=== PATIENT | male | born 1935 | race Caucasian/White ===

== ENCOUNTER 2016-05-09 00:29 | Emergency (ER) | payer MEDICARE ==
[~2016-05-09] VITALS: Ht 170.2 cm; Wt 88.6 kg
[~2016-05-09 00:29] MED LIST: ALBU8.5H2 IH; ALEN70TA2 PO; BECL8.7A5 INH; BENA40TA2 PO; CHOL100043 PO; CYCL1DRO BOTH_EYES; DESO15CR25 TOP; DILT180C47 PO; FERR-83 PO; FLUO5DRO7 BOTH_EYES; FUR20 PO; LORA10CA PO; OMEP20CA11 PO; OXYC1TAB24 PO; POLY17PO6 PO; PRAV10TA2 PO; PRD5T PO
[2016-05-09 00:30] VITALS: BP 174/101; PULSE 82; RESP 19; O2SAT 93
[2016-05-09] MEDS ORDERED: Atropine 1 mg/10 mL (Code) Syringe ONE (00:30)
[2016-05-09] MEDS ORDERED: Succinylcholine Chloride 20 mg/mL 5 mL Inj ONE (00:30)
--- NOTE | 2016-05-09 00:35 | ED.REPORT ---
HPI-General Illness Date of Service May 09, 2016 ED Provider: Vasiliy Nieto MD A 80 year old male not on anticoagulants with a medical history including sj gren's syndrome, asthma, hypertension, hyperlipidemia, diverticulitis, and SBO presents to the ED via EMS accompanied by his with dizziness onset 2300 this evening, waking him up. Per EMS, the patient's dizziness was exacerbated with opening his eyes and moving his head. Associated symptoms include nausea, vomiting, and recent cough. The patient's denies complaints of weakness, numbness, vision change, headache, or other symptoms this evening. They both ate spaghetti for dinner this evening but the patient's is not having similar symptoms. EMS found the patient with a BP of 189/79, a pulse of 74, and O2 sats of 93% on room air. He was given 12.5mg Phenergan x2 en route and presents somnolent but arousable. History was obtained primarily from EMS and the patient's . The patient has a visible facial droop but his reports this is baseline after a prior suspected CVA. Nursing Notes Stated Complaint: DIZZY VOMITING Nursing Notes Reviewed: Yes Allergies: Coded Allergies: morphine (Verified Allergy, Severe, nausea and vomiting, 05/09/16) WINSTON Inhibitors (Verified Allergy, Intermediate, COUGH, 05/09/16) hydrochlorothiazide (Verified Allergy, Intermediate, GOUT, 05/09/16) methotrexate (Verified Allergy, Intermediate, DIARRHEA, 05/09/16) atenolol (Verified Allergy, Mild, COUGH, 05/09/16) simvastatin (Verified Allergy, Unknown, 05/09/16) Uncoded Allergies: cumpamine (Allergy, Severe, myasthenia gravis -NO LONGER MADE, 09/01/05) NSAIDS (Adverse Reaction, Severe, GI BLEEDS, 06/20/12) Scheduled Alendronate Sodium (Fosamax) 70 Mg Tablet 70 MG PO WEEKLY Tuesdays Benazepril (Benazepril) 40 Mg Tablet 40 MG PO BID Cholecalciferol (Vitamin D3) (Vitamin D) 1,000 Unit Tablet 2,000 UNIT PO DAILY Cyclosporine (Restasis) 1 Each Droperette 1 DROP BOTH_EYES BID Diltiazem ER (Dilt XR) 180 Mg Cap.er.deg 180 MG PO BID Ferrous Sulfate (Ferrous Sulfate) 325 Mg Tablet 325 MG PO DAILY Fluorometholone (Fluorometholone) 5 Ml Drops.susp 1 DROP BOTH_EYES DAILY Furosemide (Furosemide) 20 Mg Tab 20 MG PO DAILY Omeprazole (Omeprazole) 20 Mg Capsule.dr 20 MG PO BID Pravastatin (Pravastatin) 10 Mg Tablet 10 MG PO DAILY Prednisone (PredniSONE) 5 Mg Tab 15 MG PO DAILY Taper dose Scheduled PRN Albuterol HFA (Proair HFA) 8.5 Gm Hfa.aer.ad 1 PUFFS IH Q4 PRN PRN For Shortness of Breath Beclomethasone Dipropionate (Qvar) 8.7 Gm Aer.w.adap 2 PUFFS INH BID PRN PRN uri 's Desonide (Desonide Cream) 15 Gm Cream..g. 1 APPLIC TOP BID PRN PRN rash Loratadine (Claritin) 10 Mg Capsule 10 MG PO DAILY PRN PRN For Congestion Polyethylene Glycol 3350 (Miralax) 17 Gm Powd.pack 17 GM PO DAILY PRN PRN For Constipation oxyCODONE-Acetaminophen 5-325 mg (oxyCODONE-Acetaminophen 5-325 mg) 1 Each Tablet 2 TAB PO QID PRN PRN For Pain General Time Seen by MD: 00:34 Chief Complaint Dizziness Hx Obtained From: Spouse, EMS Unable to Obtain Hx: Patient condition, Mental status Arrived By: Ambulance Sudden in Onset?: Yes Onset Occurred: 1 - 4 hours ago Symptom Duration: Since onset Associated with: Reports: Cough, Nausea, Vomiting, Denies: Headache, Numb extremities, Vision change, Weakness Context Related History: Reports Asthma, Reports Cancer Recent Healthcare: No recent doctor visit Past Medical History Past Medical History Notes: PCP: Dr. Cheng Past Medical History Arthritis sjgren's syndrome Asthma BPH Basal cell carcinoma GERD Hypertension Hyperlipidemia Diverticulitis History of bowel obstruction History of chronic headaches Baseline left-sided facial droop Past Surgical History 1. Status post appendectomy in 50s. 2. Status post hip fracture repair. 3. Status post cholecystectomy and herniorrhaphy. 4. Knee replacement Smoking History Never Smoker Social History Alcohol Use: Denies alcohol use Drug Use: Denies drug use Other Social History: Smokeless tobacco, Good social support, Ambulatory Status Walker Review of Systems Unable to Obtain ROS Patient condition, Mental status Physical Exam Vital Signs Vital Signs Date Time Temp Pulse Resp B/P Pulse Ox O2 Delivery O2 Flow Rate FiO2 4/3/17 00:47 36.1 92 19 174/101 92 Room Air Initial VS: Reviewed Head / Eyes: Atraumatic, Normocephalic ENT: Conjunctiva normal, No scleral icterus Skin: Warm, Dry General/Constitutional: No acute distress Alertness: Positive: Somnolent (But arousable ) Respiratory / Chest: Breath sounds NL, Breath sounds = bilat, No respiratory distress Cardiovascular: Heart rate NL, Regular rhythm, Heart sounds NL, No murmurs Lower Ext Edema: Positive: Bilateral 1+ Abdomen: Soft, Non-tender Mental Status: Positive: Responds to verbal stim, Somnolent (but arousable) NEUROLOGIC: Slight left-sided facial droop, otherwise CN II - XII intact Interpretation & Diagnostics Lab Results Interpretation Result Diagram: 05/09/163905/09/16 0040 Test 05/09/16 00:40 05/09/16 01:32 White Blood Count 13.3th/mm3 (3.8-10.1) Red Blood Count 4.83mil/mm3 (4.40-5.80) Hemoglobin 13.9g/dL (13.8-17.2) Hematocrit 42.9% (41.0-50.0) Mean Corpuscular Volume 88.8fL (81-100) Mean Corpuscular Hemoglobin 28.8pg (27.0-35.0) Mean Corpuscular Hemoglobin Concent 32.4% (32.0-37.0) Red Cell Distribution Width 14.7% (12.3-15.4) Platelet Count 293bil/L (150-400) Neutrophils (%) (Auto) 44.6% (40-74) Lymphocytes (%) (Auto) 40.9% (14-46) Monocytes (%) (Auto) 10.3% (4-12) Eosinophils (%) (Auto) 1.1% (0-5) Basophils (%) (Auto) 0.5% (0-3) Prothrombin Time 10.3sec (8.1-12.5) Prothromb Time International Ratio 0.96ratio Activated Partial Thromboplast Time 25.2sec (22.8-33.0) Sodium Level 141mEq/L (134-144) Potassium Level 3.3mEq/L (3.5-5.2) Chloride Level 107mEq/L (97-108) Carbon Dioxide Level 19mmol/L (18-29) Blood Urea Nitrogen 17mg/dL (8-27) Creatinine 0.99mg/dL (0.76-1.27) Estimat Glomerular Filtration Rate 78mL/min (>59) Glucose Level 200mg/dL (60-99) Calcium Level 9.1mg/dL (8.5-10.1) Magnesium Level 1.8mg/dL (1.6-2.6) Total Bilirubin 0.4mg/dL (0.0-1.2) Aspartate Amino Transf (AST/SGOT) 25U/L (0-50) Alanine Aminotransferase (ALT/SGPT) 55U/L (0-44) Alkaline Phosphatase 61U/L (25-160) Troponin T 0.010ug/L (0.0-0.011) Total Protein 7.4g/dL (6.4-8.4) Albumin 4.0g/dL (3.4-5.0) Lipase 36U/L (13-60) Lactic Acid Level 2.3mmol/L (0.4-2.0) ECG Interpretation ECG Interpretation: Sinus rhythm rate [address] or T-wave changes Time: 01:24 Interpreted by: ED physician X-Ray Chest Interpretation Chest Xray Interpretation: Possible effusion left lung base View: Portable, 1 view Interpretation / Wet Read by: Wet read ED physician CT Head Interpretation CONCLUSION: Cortical atrophy and periventricular white matter disease (leukoaraiosis) with a 2.5 cm left cerebellar hematoma which crosses the midline and slightly compresses the fourth ventricle. There is some surrounding edema. Findings discussed with Dr. Nieto at 05/09/2016 - 1:20:21 AM PDT Study: Head CT no contrast Interpretation / Wet Read by: Interpret - Radiologist, Discussed w radiologist Procedures Intubation Time: 01:45 Procedure Performed by: ED physician Consent / Setup / Site Prep: No consent - emergent, Time-out performed, Oxygen administered, Pulse oximeter applied, monitoring coordinator applied, Hand hygiene observed, Stand sterile technique Patient Position: Sniff position Blade / ET Tube / Route: [place] scope, Route: oral Procedural Sedation/Analgesia: Sedation: Etomidate Neuromuscular Agent: Succinylcholine ET Confirmation: Direct visualization, BS equal, End tidal CO2 device Secured / Marked: Tube marked at ___ cm (22), Tube marked at lip Complications: None Post-Procedure: Condition improved, Tolerated procedure well, Patient stable Re-Eval/Medical Decision Med Decision/Clinical Course 80-year-old male history of hypertension presenting with vomiting. CT head performed emergently which showed cerebellar intracranial hemorrhage compressing on fourth ventricle. GCS 13. His oxygen sats started to drop therefore I intubated him emergently. He is transferred emergently via airlift to [facility], accepting Dr Wong. Coags normal. Platelets normal. Hypertensive on arrival systolic blood pressures 170s. Improved to 150s over 90s with metoprolol 5 mg IV 2. Source of Hx: Old records Time of Eval: 01:07 Patient Status: Condition unchanged Re-Evaluation/Progress Note: Discussed with patient's CT results, diagnosis, and plan for transfer to [facility]. Patient's agrees with plan for care and all questions were addressed. Time of Eval: 01:24 Patient Status: Condition improved Re-Evaluation/Progress Note: Patient is more minimally more awake and responsive. Time of Eval: 01:43 Patient Status: Condition unchanged Re-Evaluation/Progress Note: Patient's O2 sats began to drop. Discussed with patient's plan for intubation. Time of Eval: 01:55 Patient Status: Condition improved Re-Evaluation/Progress Note: Discussed patient's intubation and condition with his . Consultation : Consulted With: Neurology Call Returned at: 01:18 Guide Visitor: Agrees with eval, Agrees with plan Note: Dr. Wong, [facility]: Requests Labetalol administration. Transfer accepted. Counseled Regarding: Diagnosis, Need for transfer Discharge & Departure Primary Impression: Intracranial bleed Disposition: Transfer, Acute Care Facility Receiving Hospital: [facility] Transfer Accepted: Yes Transfer Accepted at: 01:20 Transfer Reason: Higher level of care Spoke with: Attending physician Patient Status: Stable Patient Informed: Yes Discharge Condition All VS Reviewed: Yes Condition: Stable Referrals: Mak Cheng MD (PCP) Crit Care Except Billable Proc Time Spent: 75-104 minutes Services Performed: Patient management by me, Time spent at bedside, Reviewing test results, Reviewing imaging, Discussing patient care, Documentation in record, Time with fam/surrogate Scribe Attestation Portions of this note were transcribed by Neha Higginbotham. I, Dr. Nieto, personally performed the history, physical exam, and medical decision-making; I reviewed and confirmed the accuracy of the information in the transcribed note. Signed by: Everton Cason, 05/09/2016, 02:00 copies to: Mak Cheng MD Risk Factors Sahil Coma Score > Age 5 Eye Opening: Open to verbal (3) Verbal Response: Confused (4) Motor Response: Obeys commands (6) [place] Coma Score: 13 Vasiliy Nieto MD May 09, 2016 00:35 NEHA HIGGINBOTHAM May 09, 2016 00:41
[2016-05-09] MEDS ORDERED: 0.9% Sodium Chloride 1,000 ML IV ONE (00:45)
[2016-05-09 00:47] VITALS: BP 174/101; PULSE 92; RESP 19; O2SAT 92
[2016-05-09] MEDS ORDERED: Ondansetron 2 mg/mL 2 mL Inj IVPUSH PRN (00:50)
[2016-05-09 00:56] LABS: BASOPHILS % (AUTO) 0.5 % (0-3); EOSINOPHILS % (AUTO) 1.1 % (0-5); MONOCYTES % (AUTO) 10.3 % (4-12); Mean Corpuscular Hemoglobin 28.8 pg (27.0-35.0); Mean Corpuscular Volume 88.8 fL (81-100); NEUTROPHILS % (AUTO) 44.6 % (40-74); Platelet Count 293 bil/L (150-400)
[2016-05-09 01:15] VITALS: BP 181/86; PULSE 94; RESP 22; O2SAT 91
[2016-05-09 01:22] LABS: INR 0.96 ratio
[2016-05-09] MEDS ORDERED: Labetalol 5 mg/mL 4 mL Inj IVPUSH ONE (01:25)
[2016-05-09] MEDS ORDERED: MeTOProlol 1 mg/mL 5 mL Inj ONE (01:29)
[2016-05-09 01:30] VITALS: BP 173/80; PULSE 82; RESP 19; O2SAT 93
[2016-05-09] MEDS: MeTOProlol 1 mg/mL 5 mL Inj IVPUSH SCH ×2 (01:33→01:48)
[2016-05-09] MEDS ORDERED: Propofol 10,000 mCg/mL 100 mL Inj ONE (01:39)
[2016-05-09 01:45] VITALS: BP 155/105; PULSE 85; RESP 20; O2SAT 100
[2016-05-09 01:45] LABS: Magnesium 1.8 mg/dL (1.6-2.6); TROPONIN T 0.01 ug/L (0.0-0.011)
[2016-05-09] MEDS ORDERED: Succinylcholine Chloride 20 mg/mL 5 mL Inj IVPUSH ONE (02:20)
[2016-05-09 02:35] VITALS: BP 155/105; PULSE 85; RESP 20; O2SAT 100
--- NOTE | 2016-05-09 07:55 | DRSVH ---
PROCEDURE: CT BRAIN WITHOUT CONTRAST ([id number]) INDICATIONS: dizziness TECHNIQUE: Noncontrast 4.5 mm thick angled axial sections acquired from the foramen magnum to the vertex, with c oronal reformats. COMPARISON: [facility] , CT, BRAIN W/O CONTRAST, 01/17/2005, 16:44. FINDINGS: Image quality: Excellent. CSF spaces: Basal cisterns are patent. No extra-axial fluid collections. The ventricles are symmet lisa in size and shape. Brain: There is an intraparenchymal hematoma in the left cerebellar hemisphere extending to the cere bellar vermis measuring 1.8 x 2.6 x 2.2 cm. There is mild cerebral edema and slight effacement of the fourth ventricle. No midline shift. No intracranial bleeds or masses. There is moderate cerebral vo lume loss for age, with resultant ventricular and sulcal prominence. There are moderate to severe pe riventricular and deep white matter chronic small vessel ischemic changes. There is intracranial int ernal carotid artery atherosclerosis. Skull and face: Calvarium and visualized facial bones appear intact, without suspicious lesions. Sinuses: Visualized sinuses and mastoids are clear. IMPRESSION: 1. 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 There is mild edema and slight effacement of the four th ventricle. 2. Cerebral volume loss and chronic microvascular ischemic changes. No significant discrepancy with the telephone operator radiology preliminary report. Dictated by: Katelyn Paez M.D. on 05/09/2016 at 7:53 Transcribed by: LIYA on 05/09/2016 at 7:55 Approved by: Katelyn Paez M.D. on 05/09/2016 at 10:58
--- NOTE | 2016-05-09 08:14 | DRSVH ---
PROCEDURE: X-RAY CHEST ONE VIEW, PORTABLE ([id number]) INDICATIONS: dizziness TECHNIQUE: One view of the chest was acquired. COMPARISON: 11/13/2015 FINDINGS: Surgical changes and devices: None. Lungs and pleura: No pleural effusions or pneumothorax. Suboptimal inspiration. There are patchy rad iodensities at the right lung base medially and throughout the left lower lobe, suspect for pneumonia Mediastinum: Mediastinal contours appear normal. Heart size is normal. Bones and chest wall: No suspicious bony lesions. Overlying soft tissues appear unremarkable. IMPRESSION: Probable bilateral lower lobe pneumonia left greater than right. Correlate clinically. Dictated by: Cole Barrow M.D. on 05/09/2016 at 8:11 Approved by: Cole Barrow M.D. on 05/09/2016 at 8:13
== END 2016-05-09 02:04 | disposition short-term general hospital (02) ==
LOC: SED 00:29 → EDBD 00:29 → EDUNIT# 00:29 → SED 02:04
DX: I61.4 Nontraumatic intracerebral hemorrhage in cerebellum (principal); R11.2 Nausea with vomiting, unspecified; R05 Cough; J45.909 Unspecified asthma, uncomplicated; I10 Essential (primary) hypertension; K21.9 Gastro-esophageal reflux disease without esophagitis; E78.5 Hyperlipidemia, unspecified; Z88.5 Allergy status to narcotic agent; Z88.8 Allergy status to other drugs, medicaments and biological substances
CPT/HCPCS: 31500; 36415; 51702; 70450; 71010; 80053; 83605; 83690; 83735; 84484; 85025; 85610; 85730; 93005; 94799; 96361; 96374; 96375; 99291; 99292; J0330; J0461; J2250; J2405; J7030